=== PATIENT | male | born 1950 | race African-American/Black ===

== ENCOUNTER 2016-12-19 11:23 | Emergency (ER) | payer OTHER ==
[2016-12-19 11:28] VITALS: BP 155/55; PULSE 75; TEMP 98; BMI 39.6
[2016-12-19] MEDS ORDERED: DEXAMETHASONE SOD PHOSPHATE 10 MG/1 ML VIAL ONE (12:16)
[2016-12-19] MEDS ORDERED: DEXAMETHASONE LIQUID 0.5 MG/5 ML 240 ML BULK BOTTLE PO ONE (12:16)
[2016-12-19] MEDS ORDERED: IBUPROFEN 600 MG TABLET (FP) PO ONE ×2 (12:17)
--- NOTE | 2016-12-19 12:25 | PDOC ---
History of Present Illness - General Chief Complaint: Sore Throat Stated Complaint: THROAT PAIN Time Seen by Provider: 12/19/16 11:39 - History of Present Illness Initial Comments: 12/19/16 12:18 This is a 66-year-old male with past medical history of diabetes and hypertension who reports having nasal congestion, productive cough, body aches, sore throat, odynophagia, chills for the past 4 days. Patient reports taking [id number] medication with minimal relief of symptoms. The cough is progressed over the past 2 days is not productive with valle/green sputum. He denies any fevers. Denies headaches, nausea, vomiting, chest pain, shortness of breath. Denies any recent travel or sick contacts. Patient is a nonsmoker of tobacco but endorses daily THC use. Past History - Past Medical History Allergies/Adverse Reactions: Allergies Allergy/AdvReac Type Severity Reaction Status Date / Time No Known Allergies Allergy Verified 12/19/16 11:28 Home Medications: Ambulatory Orders Amlodipine Besylate [Norvasc -] 10 mg PO DAILY 02/16/16 Ciprofloxacin HCl [Cipro] 500 mg PO BID #14 tablet 02/16/16 Glipizide 10 mg PO BID 02/16/16 Hydralazine HCl [Apresoline -] 25 mg PO BID 02/16/16 Hydrochlorothiazide 50 mg PO DAILY 02/16/16 Insulin (Novolog 70/30) [Novolog Mix 70/30 Vial] 50 ml SQ BID 02/16/16 Losartan/Hydrochlorothiazide [Losartan-Hctz 100-25 mg Tab] 1 each PO DAILY 02/15 Metformin HCl 850 mg PO TID 02/16/16 Metoprolol Tartrate [Lopressor] 100 mg PO DAILY 02/16/16 Tamsulosin HCl [Flomax] 0.4 mg PO DAILY #7 cap.er.24h 02/16/16 Azithromycin [Zithromax 250mg Tablets -] 250 mg PO DAILY #6 tab 12/19/16 Dementia: Yes Diabetes: Yes HTN: Yes - Suicide/Smoking/Psychosocial Hx Smoking History: Never smoked Have you smoked in the past 12 months: No Hx Alcohol Use: No Drug/Substance Use Hx: No Substance Use Type: None Review of Systems - Review of Systems Able to Perform ROS?: Yes Is the patient limited Bengali proficient: No Constitutional: Yes: See HPI HEENTM: Yes: See HPI Respiratory: Yes: See HPI Cardiac (ROS): No: Symptoms Reported ABD/GI: No: Symptoms Reported : No: Symptoms Reported Musculoskeletal: Yes: See HPI Integumentary: No: Symptoms Reported Neurological: No: Symptoms reported *Physical Exam - Vital Signs Last Vital Signs Temp Pulse Resp BP Pulse Ox 98.0 F 75 20 155/55 97 12/19/16 11:25 12/19/16 11:25 12/19/16 11:25 12/19/16 11:25 12/19/16 11:25 ED Treatment Course - RADIOLOGY Radiology Studies Ordered: Category Date Time Status CHEST PA & LAT [RAD] Stat Radiology 12/19/16 12:16 Ordered Medical Decision Making - Medical Decision Making 12/19/16 12:19 A/P: This is a 66-year-old male with past medical history of diabetes and hypertension who reports having nasal congestion, productive cough, body aches, sore throat, odynophagia, chills for the past 4 days. Patient reports taking oaxm-tgq-jegqely medication with minimal relief of symptoms. The cough is progressed over the past 2 days is not productive with valle/green sputum. He denies any fevers. Denies headaches, nausea, vomiting, chest pain, shortness of breath. Denies any recent travel or sick contacts. Patient is a nonsmoker of tobacco but endorses daily THC use. Oropharynx erythematous without exudates. TMs pearly valle appropriate light reflex. No palpable anterior or posterior cervical lymphadenopathy. No palpable tenderness over sinuses. Lungs with rhonchi noted in left lower field. Regular rate and rhythm S1-S2 present no murmurs rub or gallop abdomen obese but soft nontender nondistended. Rectal exam deferred. Differential diagnoses include viral illness, pneumonia. I will give 10 mg of Decadron PO, 600 mg of Motrin by mouth, collect influenza nasopharyngeal swab, and do a chest x-ray. 12/19/16 12:54 Chest x-ray as read by Dr. Langford- elevated left hemidiaphragm with some pleural reaction at the left base, large heart, possibly old left rib trauma and no sign of discrete infiltrate or pneumothorax. The heart is enlarged. His consultation or bone island projected by the right second rib. There may be a calcification to the left apex. Aortic and hilar contours are unremarkable. The right ankle is sharp. The left ankle is blunted. Soft tissues are increased. Correlation recommended comparison to prior studies is suggested. Influenza swab negative for influenza A and B. I will discharge with prescription for azithromycin and read as an outpatient for pneumonia. I discussed the physical exam findings, ancillary test results and final diagnoses with the patient. I answered all of the patient's questions. The patient was satisfied with the care received and felt comfortable with the discharge plan and treatment plan. The patient will call his doctor within 72 hours to arrange follow-up and will return to the Emergency Department with any new, persistent or worsening symptoms. *DC/Admit/Observation/Transfer Diagnosis at time of Disposition: Pneumonia Qualifiers: Pneumonia type: due to unspecified organism Laterality: left Lung location: lower lobe of lung Qualified Code(s): J18.1 - Lobar pneumonia, unspecified organism; J18.1 - Lobar pneumonia, unspecified organism; J18.1 - Lobar pneumonia , unspecified organism - Discharge Dispostion Disposition: HOME Condition at time of disposition: Stable Admit: No - Prescriptions Prescriptions: Azithromycin [Zithromax 250mg Tablets -] 250 mg PO DAILY #6 tab - Referrals Referrals: Jose Alfredo Santiago [Primary Care Provider] - - Patient Instructions Printed Discharge Instructions: DI for Pneumonia -- Adult Additional Instructions: Take Tylenol or Motrin as directed by manufacturers instructions as needed for fevers or pain. Take Coricidin to help with nasal decongestants as an [id number] medication. Humidified your air by boiling a pot of water or putting a glass of water on top of your radiator. Use Marla Pantoja to help with nasal decongestion. Take azithromycin as prescribed and finish all the medications. Make an appointment with your doctor if symptoms do not improve within the next 3-4 days. Thank you very much for choosing us to provide your emergent healthcare needs.
== END 2016-12-19 13:28 | disposition home or self-care (01) ==
LOC: JERFT 11:23
DX: J18.1 Lobar pneumonia, unspecified organism (principal); I10 Essential (primary) hypertension; E11.9 Type 2 diabetes mellitus without complications; Z79.4 Long term (current) use of insulin; Z79.84 Long term (current) use of oral hypoglycemic drugs; F03.90 Unspecified dementia, unspecified severity, without behavioral disturbance, psychotic disturbance, mood disturbance, and anxiety
CPT/HCPCS: 71020-TC; 87804; 99281-25